=== PATIENT | female | born 1975 | race Caucasian/White ===

== ENCOUNTER 2016-05-22 21:02 | Emergency (ER) | payer MEDICAID ==
[~2016-05-22] VITALS: Ht 157.5 cm; Wt 72.7 kg
[~2016-05-22 21:02] MED LIST: ALDACTONE 25MG25 M1 PO; ASPIRIN 81M81 MG/TA2 PO; CELEXA10 MG PO; FLOVENT DI100 MCG/Ac; FLOVENT DI100 MCG/Ac IH; GLUCOPHAGE XR500 M1 PO; HUMALOG100 U/ML SQ; IMITREX50 MG PO; LANTUS100 U/ML SC; LIPITOR 80MG80 MG PO; LOPRESSOR100 MG PO; NITROSTAT0.4 MG/TAB SL; PHENERGAN 25 TA25 MG PO; PLAVIX 75MG TAB75 MG PO; PRILOSEC 20MG20 MG PO; SEROQUEL 200MG200 MG PO; SINGULAIR 110 MG/TAB PO; TOPAMAX 25MG25 M1 PO; ZANTAC 300300 MG PO
[2016-05-22 21:08] VITALS: TEMP 98.7
[2016-05-22 21:26] LABS: HEMATOCRIT 39.8 % (37.0-47.0); HEMOGLOBIN 12.7 g/dl (12.5-16.0); MEAN CELL VOLUME 71 fl (80.0-100.0); MEAN CORPUSCULAR HEMOGLOBIN 23 pg (27.0-31.0); MEAN CORPUSCULAR HGB CONC 32 g/dl (33.0-37.0); MEAN PLATELET VOLUME 9.4 fl (7.4-10.4); PLATELET COUNT 354 K/mm3 (130-400); REDCELL DISTRIBUTION WIDTH-CV 15.4 % (11.5-14.5); WHITE BLOOD COUNT 15.1 K/mm3 (4.8-10.8)
[2016-05-22 21:33] LABS: ADD PATHOLOGY DIFF REVIEW NO
[2016-05-22 21:39] LABS: ADJUSTED CALCIUM 9.6 mg/dL (8.4-10.2); ALBUMIN 4.4 gm/dL (3.5-5.0); BILIRUBIN,TOTAL 0.8 mg/dL (0.0-1.0); CALCIUM 9.9 mg/dL (8.4-10.2); CREATININE, serum 0.73 mg/dL (0.52-1.25); POTASSIUM 3.7 mmol/L (3.4-5.0); TOTAL PROTEIN 8.4 gm/dL (6.4-8.2)
[2016-05-22 21:51] LABS: TROPONIN-I 0.027 ng/mL (0.000-0.034)
[2016-05-22 21:56] LABS: BAND 5 % (0-10); EOSINOPHIL 4 % (0-4); NEUTROPHILS 27 % (42.0-75.2); TOTAL CELLS COUNTED 100
[2016-05-22] MEDS ORDERED: WELLBUTRIN XL150 MG PO (22:06)
[2016-05-22] MEDS ORDERED: NEURONTIN300 MG/CAP PO (22:09)
[2016-05-22 22:30] VITALS: BP 143/98; PULSE 109
[2016-07-05] MEDS ORDERED: LANTUS SOLOS100 U/ML SQ (20:47)
[2016-07-05] MEDS ORDERED: BRILINTA60 MG PO (20:48)
[2016-07-05] MEDS ORDERED: NOVOLOG FLEX100 U/ML SQ (20:50)
[2016-07-05] MEDS ORDERED: SEROQUEL400 MG PO (20:53)
[2016-07-05] MEDS ORDERED: SEROQUEL 200MG200 MG PO (20:53)
== END 2016-05-22 22:38 | disposition short-term general hospital (02) ==
LOC: COL.ER 21:02
PROVIDERS: Emergency Medicine
DX: I21.09 ST elevation (STEMI) myocardial infarction involving other coronary artery of anterior wall (principal); R94.31 Abnormal electrocardiogram [ECG] [EKG]; I25.2 Old myocardial infarction; I25.10 Atherosclerotic heart disease of native coronary artery without angina pectoris; I10 Essential (primary) hypertension; E11.9 Type 2 diabetes mellitus without complications; F17.210 Nicotine dependence, cigarettes, uncomplicated; R07.89 Other chest pain; Z95.818 Presence of other cardiac implants and grafts
CPT/HCPCS: J1170; J1644; J2060; J2270; J2405; J3101; J7030

== ENCOUNTER 2016-05-31 04:25 | Emergency (ER) | payer MEDICAID ==
[~2016-05-31] VITALS: Ht 17.8 cm; Wt 68.2 kg
[~2016-05-31 04:25] MED LIST changes: +NEURONTIN300 MG/CAP PO; +WELLBUTRIN XL150 MG PO
[2016-05-31 04:36] LABS: MEAN CELL VOLUME 73 fl (80.0-100.0); MEAN CORPUSCULAR HGB CONC 31 g/dl (33.0-37.0); MEAN PLATELET VOLUME 8.9 fl (7.4-10.4); PLATELET COUNT 407 K/mm3 (130-400); RED BLOOD COUNT 5.05 M/mm3 (4.10-5.30); REDCELL DISTRIBUTION WIDTH-CV 15.8 % (11.5-14.5); WHITE BLOOD COUNT 14.4 K/mm3 (4.8-10.8)
[2016-05-31 04:39] LABS: INR 1.1 (0.8-3.0); PROTHROMBIN TIME 11.8 SECONDS (9.7-12.8)
[2016-05-31 04:42] LABS: PARTIAL THROMBOPLASTIN TIME 28.8 SECONDS (26.0-37.0)
[2016-05-31 04:43] LABS: HEMATOCRIT 36.7 % (37.0-47.0); HEMOGLOBIN 11.4 g/dl (12.5-16.0); MEAN CORPUSCULAR HEMOGLOBIN 23 pg (27.0-31.0)
[2016-05-31 04:44] LABS: ADD PATHOLOGY DIFF REVIEW NO
[2016-05-31 04:51] LABS: ADJUSTED CALCIUM 9.2 mg/dL (8.4-10.2); ALBUMIN 3.8 gm/dL (3.5-5.0); BILIRUBIN,TOTAL 0.5 mg/dL (0.0-1.0); CREATININE, serum 0.87 mg/dL (0.52-1.25); POTASSIUM 3.7 mmol/L (3.4-5.0); TOTAL PROTEIN 7.5 gm/dL (6.4-8.2)
[2016-05-31 04:55] LABS: BAND 6 % (0-10); BASOPHIL 1 % (0-2); EOSINOPHIL 2 % (0-4); NEUTROPHILS 31 % (42.0-75.2); PLATELET ESTIMATE NORMAL (NORMAL); TOTAL CELLS COUNTED 100
[2016-05-31 05:02] LABS: TROPONIN-I 0.022 ng/mL (0.000-0.034)
[2016-05-31 05:33] VITALS: BP 138/97; PULSE 124
[2016-07-05] MEDS ORDERED: LANTUS SOLOS100 U/ML SQ (20:47)
[2016-07-05] MEDS ORDERED: BRILINTA60 MG PO (20:48)
[2016-07-05] MEDS ORDERED: NOVOLOG FLEX100 U/ML SQ (20:50)
[2016-07-05] MEDS ORDERED: SEROQUEL 200MG200 MG PO (20:53)
[2016-07-05] MEDS ORDERED: SEROQUEL400 MG PO (20:53)
== END 2016-05-31 05:12 | disposition short-term general hospital (02) ==
LOC: COL.ER 04:25
PROVIDERS: Emergency Medicine
DX: I22.0 Subsequent ST elevation (STEMI) myocardial infarction of anterior wall (principal); I21.3 ST elevation (STEMI) myocardial infarction of unspecified site; I10 Essential (primary) hypertension; E11.9 Type 2 diabetes mellitus without complications; Z95.5 Presence of coronary angioplasty implant and graft; Z79.02 Long term (current) use of antithrombotics/antiplatelets; F17.210 Nicotine dependence, cigarettes, uncomplicated; Z79.4 Long term (current) use of insulin
CPT/HCPCS: J1170; J1644; J2405

== ENCOUNTER → 2016-07-05 | Emergency (ER) | payer MEDICAID ==
[~2016-07-05] VITALS: Ht 160 cm; Wt 73.2 kg
[~2016-07-05] MED LIST changes: +BRILINTA60 MG PO; +EFFIENT5 MG PO; +IMDUR 30MG30 MG/TAB PO; +LANTUS SOLOS100 U/ML SQ; +NICODERM C14 MG/PATC TD; +NORVASC2.5 MG PO; +NOVOLOG FLEX100 U/ML SQ; +PRINIVIL20 MG PO; +SEROQUEL400 MG PO
[2016-07-05 19:23] VITALS: TEMP 97.9
[2016-07-05 19:57] LABS: BASO # 0.1 (0.0-0.2); BASO % 0.9 % (0.0-2.0); EOS # 0.4 (0.0-0.7); EOS % 3.3 % (0-4.0); GRAN % 52.9 % (42.2-75.2); LYMPH # 4.3 (1.2-3.4); LYMPH % 37.8 % (20.0-51.0); MEAN CELL VOLUME 72 fl (80.0-100.0); MEAN CORPUSCULAR HGB CONC 32 g/dl (33.0-37.0); MEAN PLATELET VOLUME 8.9 fl (7.4-10.4); MONO # 0.5 (0.1-0.6); MONO % 4.4 % (1.7-9.3); PLATELET COUNT 402 K/mm3 (130-400); REDCELL DISTRIBUTION WIDTH-CV 17.2 % (11.5-14.5); WHITE BLOOD COUNT 11.4 K/mm3 (4.8-10.8)
[2016-07-05 20:01] LABS: ADJUSTED CALCIUM 9.4 mg/dL (8.4-10.2); ALBUMIN 3.9 gm/dL (3.5-5.0); BILIRUBIN,TOTAL 0.5 mg/dL (0.0-1.0); CALCIUM 9.3 mg/dL (8.4-10.2); CREATININE, serum 0.84 mg/dL (0.52-1.25); POTASSIUM 4.2 mmol/L (3.4-5.0); TOTAL PROTEIN 7.7 gm/dL (6.4-8.2)
[2016-07-05 20:03] LABS: HEMATOCRIT 32.4 % (37.0-47.0); HEMOGLOBIN 10.2 g/dl (12.5-16.0); MEAN CORPUSCULAR HEMOGLOBIN 23 pg (27.0-31.0)
[2016-07-05 20:13] LABS: TROPONIN-I 0.024 ng/mL (0.000-0.034)
[2016-07-05 21:47] VITALS: BP 129/91; PULSE 90
== END | disposition short-term general hospital (02) ==
LOC: COL.ER 19:21
PROVIDERS: Emergency Medicine
DX: R07.9 Chest pain, unspecified (principal); I25.2 Old myocardial infarction; I25.10 Atherosclerotic heart disease of native coronary artery without angina pectoris; Z95.5 Presence of coronary angioplasty implant and graft; I10 Essential (primary) hypertension; F17.210 Nicotine dependence, cigarettes, uncomplicated; E11.9 Type 2 diabetes mellitus without complications; Z79.4 Long term (current) use of insulin
CPT/HCPCS: J1170; J1644; J2270

== ENCOUNTER 2016-10-06 07:38 | Inpatient (IN) | payer SELFPAY ==
[2016-10-06] VITALS (424 sets, daily range): BP systolic 107–144; BP diastolic 61–94; PULSE 79–97; TEMP 97–97.5; O2SAT 70–100
[~2016-10-06] VITALS: Ht 160 cm; Wt 71.7 kg
[~2016-10-06 07:38] MED LIST changes: -EFFIENT5 MG PO; -IMDUR 30MG30 MG/TAB PO; -NICODERM C14 MG/PATC TD; -NORVASC2.5 MG PO; -PRINIVIL20 MG PO
[2016-10-06 08:30] LABS: BASO # 0.1 (0.0-0.2); BASO % 0.8 % (0.0-2.0); EOS # 0.4 (0.0-0.7); EOS % 3.9 % (0-4.0); GRAN # 6.1 (1.4-6.5); GRAN % 60.3 % (42.2-75.2); LYMPH # 3.1 (1.2-3.4); LYMPH % 30.7 % (20.0-51.0); MEAN CELL VOLUME 70 fl (80.0-100.0); MEAN CORPUSCULAR HGB CONC 32 g/dl (33.0-37.0); MEAN PLATELET VOLUME 9.6 fl (7.4-10.4); MONO # 0.4 (0.1-0.6); PLATELET COUNT 383 K/mm3 (130-400); RED BLOOD COUNT 5.16 M/mm3 (4.10-5.30); REDCELL DISTRIBUTION WIDTH-CV 15.8 % (11.5-14.5); WHITE BLOOD COUNT 10.1 K/mm3 (4.8-10.8)
[2016-10-06 08:31] LABS: HEMATOCRIT 35.9 % (37.0-47.0); HEMOGLOBIN 11.5 g/dl (12.5-16.0); MEAN CORPUSCULAR HEMOGLOBIN 22 pg (27.0-31.0)
[2016-10-06 08:34] LABS: INR 1.1 (0.8-3.0); PROTHROMBIN TIME 12.2 SECONDS (9.7-12.8)
[2016-10-06 08:37] LABS: PARTIAL THROMBOPLASTIN TIME 28.5 SECONDS (26.0-37.0)
[2016-10-06 08:42] LABS: ADJUSTED CALCIUM 9.1 mg/dL (8.4-10.2); ALBUMIN 4.1 gm/dL (3.5-5.0); BILIRUBIN,TOTAL 0.6 mg/dL (0.0-1.0); CALCIUM 9.2 mg/dL (8.4-10.2); CREATININE, serum 1.24 mg/dL (0.52-1.25); POTASSIUM 4.6 mmol/L (3.4-5.0); TOTAL PROTEIN 8.2 gm/dL (6.4-8.2)
[2016-10-06] MEDS ORDERED: NORVASC2.5 MG PO (08:55)
[2016-10-06] MEDS ORDERED: IMDUR 30MG30 MG/TAB PO (08:56)
[2016-10-06] MEDS ORDERED: NICODERM C14 MG/PATC TD (08:56)
[2016-10-06] MEDS ORDERED: PRINIVIL20 MG PO (08:57)
[2016-10-06 09:01] LABS: TROPONIN-I 0.042 ng/mL (0.000-0.034)
[2016-10-07] VITALS (371 sets, daily range): BP systolic 96–120; BP diastolic 62–70; PULSE 76–99; TEMP 97–98.3; O2SAT 82–100
[2016-10-07 06:04] LABS: MEAN CELL VOLUME 70 fl (80.0-100.0); MEAN CORPUSCULAR HGB CONC 31 g/dl (33.0-37.0); MEAN PLATELET VOLUME 9.4 fl (7.4-10.4); PLATELET COUNT 355 K/mm3 (130-400); RED BLOOD COUNT 4.79 M/mm3 (4.10-5.30); REDCELL DISTRIBUTION WIDTH-CV 15.9 % (11.5-14.5); WHITE BLOOD COUNT 9.1 K/mm3 (4.8-10.8)
[2016-10-07 06:06] LABS: HEMATOCRIT 33.4 % (37.0-47.0); HEMOGLOBIN 10.5 g/dl (12.5-16.0); MEAN CORPUSCULAR HEMOGLOBIN 22 pg (27.0-31.0)
[2016-10-07 06:12] LABS: CALCIUM 8.7 mg/dL (8.4-10.2); CREATININE, serum 0.91 mg/dL (0.52-1.25); POTASSIUM 3.9 mmol/L (3.4-5.0)
[2016-10-07 06:34] LABS: TROPONIN-I 1.63 ng/mL (0.000-0.034)
[2016-10-07] MEDS ORDERED: EFFIENT5 MG PO (13:57)
== END 2016-10-07 15:00 | disposition home or self-care (01) | DRG 246 ==
LOC: COL.ER 07:38 → ICU 10:09
PROVIDERS: Emergency Medicine; Internal Medicine Interventional Cardiology
PROC: 027034Z Dilation of Coronary Artery, One Artery with Drug-eluting Intraluminal Device, Percutaneous Approach (ICD-10-PCS; principal; 2016-10-06)
PROC: 4A023N7 Measurement of Cardiac Sampling and Pressure, Left Heart, Percutaneous Approach (ICD-10-PCS; 2016-10-06)
PROC: B2111ZZ Fluoroscopy of Multiple Coronary Arteries using Low Osmolar Contrast (ICD-10-PCS; 2016-10-06)
DX: T82.855A Stenosis of coronary artery stent, initial encounter (principal); I21.4 Non-ST elevation (NSTEMI) myocardial infarction; E78.5 Hyperlipidemia, unspecified; I25.2 Old myocardial infarction; E11.9 Type 2 diabetes mellitus without complications; I25.10 Atherosclerotic heart disease of native coronary artery without angina pectoris; Z87.891 Personal history of nicotine dependence; I11.0 Hypertensive heart disease with heart failure; I50.9 Heart failure, unspecified; Z79.4 Long term (current) use of insulin
CPT/HCPCS: 99223-AI; 99239; C1751; C1760; C1769; C1874; C1887; C9600; J0583; J1644; J1815; J2250; J2270; J3010; J7030; Q9967

== ENCOUNTER → 2017-02-21 | Outpatient (CLI) | payer MEDICAID ==
[~2017-02-21] MED LIST changes: +EFFIENT5 MG PO; +IMDUR 30MG30 MG/TAB PO; +NICODERM C14 MG/PATC TD; +NORVASC2.5 MG PO; +PRINIVIL20 MG PO
[2017-02-21 16:03] LABS: URINE PROTEIN:CREAT RATIO 0.21 (0.00-0.14)
== END ==
LOC: COL.LAB 11:34
PROVIDERS: Family Medicine
DX: E11.8 Type 2 diabetes mellitus with unspecified complications (principal)

== ENCOUNTER → 2017-05-10 | Outpatient (CLI) | payer MEDICAID ==
[~2017-05-10] MED LIST changes: +BRILINTA90 MG PO; +IMDUR 60MG60 MG/TAB PO; +LANTUS100 U/ML SQ; +PROAIR HFA0.09 MG/AC IH
[2017-05-10 14:57] LABS: THYROID STIMULATING HORMONE 0.261 uIU/mL (0.465-4.680)
== END ==
LOC: COL.LAB 11:08
PROVIDERS: Family Medicine
DX: R00.0 Tachycardia, unspecified (principal)

== ENCOUNTER 2017-05-11 03:12 | Inpatient (IN) | payer MEDICAID ==
[~2017-05-11] VITALS: Ht 157.5 cm; Wt 73.3 kg
[2017-05-11] VITALS (85 sets, daily range): BP systolic 106–127; BP diastolic 69–83; PULSE 92–100; TEMP 9.1; O2SAT 96–100
[~2017-05-11 03:12] MED LIST changes: -BRILINTA90 MG PO; -IMDUR 60MG60 MG/TAB PO; -LANTUS100 U/ML SQ; -PROAIR HFA0.09 MG/AC IH
[2017-05-11 03:43] LABS: BASO # 0.1 (0.0-0.2); BASO % 0.6 % (0.0-2.0); EOS # 0.3 (0.0-0.7); GRAN # 5.5 (1.4-6.5); GRAN % 59.4 % (42.2-75.2); LYMPH % 31.9 % (20.0-51.0); MEAN CELL VOLUME 71 fl (80.0-100.0); MEAN CORPUSCULAR HGB CONC 33 g/dl (33.0-37.0); MEAN PLATELET VOLUME 9.8 fl (7.4-10.4); MONO # 0.4 (0.1-0.6); MONO % 4.8 % (1.7-9.3); PLATELET COUNT 342 K/mm3 (130-400); RED BLOOD COUNT 4.96 M/mm3 (4.10-5.30); WHITE BLOOD COUNT 9.3 K/mm3 (4.8-10.8)
[2017-05-11 03:45] LABS: HEMATOCRIT 35.4 % (37.0-47.0); HEMOGLOBIN 11.5 g/dl (12.5-16.0); MEAN CORPUSCULAR HEMOGLOBIN 23 pg (27.0-31.0)
[2017-05-11 03:52] LABS: ALBUMIN 4.2 gm/dL (3.5-5.0); BILIRUBIN,TOTAL 0.4 mg/dL (0.0-1.0); CALCIUM 9.2 mg/dL (8.4-10.2); CREATININE, serum 0.72 mg/dL (0.52-1.25); POTASSIUM 3.9 mmol/L (3.4-5.0); TOTAL PROTEIN 7.5 gm/dL (6.4-8.2)
[2017-05-11 04:04] LABS: TROPONIN-I 0.016 ng/mL (0.000-0.034)
[2017-05-11 04:19] LABS: D-DIMER < 200.00 ng/mLDDu (200-230)
[2017-05-11 04:25] LABS: PARTIAL THROMBOPLASTIN TIME 27.8 SECONDS (26.0-37.0)
[2017-05-11] MEDS ORDERED: LOPRESSOR100 MG PO (05:48)
[2017-05-11] MEDS ORDERED: SEROQUEL 200MG200 MG PO (05:49)
[2017-05-11] MEDS ORDERED: NOVOLOG FLEX100 U/ML SQ (05:50)
[2017-05-11] MEDS ORDERED: LANTUS100 U/ML SQ (05:51)
[2017-05-11] MEDS ORDERED: NEURONTIN300 MG/CAP PO (05:52)
[2017-05-11] MEDS ORDERED: IMDUR 60MG60 MG/TAB PO (05:54)
[2017-05-11] MEDS ORDERED: BRILINTA90 MG PO (05:55)
[2017-05-11] MEDS ORDERED: PROAIR HFA0.09 MG/AC IH (05:56)
== END 2017-05-11 16:55 | disposition expired | DRG 272 ==
LOC: COL.ER 03:12 → ICU 05:00
PROVIDERS: Emergency Medicine
PROC: B2111ZZ Fluoroscopy of Multiple Coronary Arteries using Low Osmolar Contrast (ICD-10-PCS; principal; 2017-05-11)
PROC: 5A02210 Assistance with Cardiac Output using Balloon Pump, Continuous (ICD-10-PCS; 2017-05-11)
PROC: 027136Z Dilation of Coronary Artery, Two Arteries with Three Drug-eluting Intraluminal Devices, Percutaneous Approach (ICD-10-PCS; 2017-05-11)
PROC: B2151ZZ Fluoroscopy of Left Heart using Low Osmolar Contrast (ICD-10-PCS; 2017-05-11)
PROC: 0BH17EZ Insertion of Endotracheal Airway into Trachea, Via Natural or Artificial Opening (ICD-10-PCS; 2017-05-11)
DX: I21.4 Non-ST elevation (NSTEMI) myocardial infarction (principal); E11.65 Type 2 diabetes mellitus with hyperglycemia; I25.10 Atherosclerotic heart disease of native coronary artery without angina pectoris; Z95.5 Presence of coronary angioplasty implant and graft; I10 Essential (primary) hypertension; Z79.4 Long term (current) use of insulin; Z87.891 Personal history of nicotine dependence
CPT/HCPCS: C1725; C1769; C1874; C1887; C1894; C9600; J0153; J0171; J0330; J0461; J1327; J1650; J1815; J2250; J2270; J2405; J3010; J7030; J7060; Q9967